=== PATIENT | female | born 1970 | race Caucasian/White ===

== ENCOUNTER 2016-11-01 06:00 | Emergency (ER) | payer MEDICARE ==
[~2016-11-01] VITALS: Ht 162.6 cm; Wt 90.0 kg
[2016-11-01] MEDS ORDERED: MORPHINE SULFATE 4 MG/ML, 1ML IVPush PRN (06:30)
[2016-11-01] MEDS ORDERED: SODIUM CHLORIDE FLUSH 10ML SYR IVF ONE (06:30)
[2016-11-01] MEDS ORDERED: ONDANSETRON 2MG/ML, 2ML IVPush ONE (06:30)
[2016-11-01 06:33] LABS: HCG UR OBC PASS; PATH.CAST-FLAG NOT PRESENT; SPERM-FLAG NOT PRESENT; SRC-FLAG NOT PRESENT; XTAL-FLAG NOT PRESENT; YLC-FLAG NOT PRESENT
[2016-11-01] MEDS ORDERED: ONDANSETRON 2MG/ML, 2ML ONE (06:37)
[2016-11-01] MEDS ORDERED: MORPHINE SULFATE 4 MG/ML, 1ML ONE (06:37)
[2016-11-01 06:41] LABS: HEMATOCRIT 37.1 % (34.6-47.8); HEMOGLOBIN 12.3 g/dL (11.7-16.4); WHITE BLOOD COUNT 5.9 x10^3/uL (3.4-10)
[2016-11-01 06:50] VITALS: BP 112/75
[2016-11-01 06:52] LABS: BLOOD UREA NITROGEN 22 mg/dL (7-18)
== END 2016-11-01 08:07 | disposition home or self-care (01) ==
LOC: ED 07:54
DX: N39.0 Urinary tract infection, site not specified (principal); N30.90 Cystitis, unspecified without hematuria; F17.210 Nicotine dependence, cigarettes, uncomplicated; E66.9 Obesity, unspecified
CPT/HCPCS: 36415; 76830; 80048; 81001; 81025; 82040; 85025; 87086; 96374; 96375; 99285; J2405

== ENCOUNTER 2016-11-06 12:10 | Observation (INO) | payer MEDICARE ==
[~2016-11-06] VITALS: Ht 162.6 cm; Wt 80.0 kg
[2016-11-06] MEDS ORDERED: NAPR500T PO (12:37)
[2016-11-06] MEDS ORDERED: CEFD300C37 PO (12:37)
[2016-11-06 12:38] LABS: DAU SCREEN DISCLAIMER
[2016-11-06 12:39] LABS: HEMATOCRIT 35.9 % (34.6-47.8); HEMOGLOBIN 11.9 g/dL (11.7-16.4); WHITE BLOOD COUNT 6.4 x10^3/uL (3.4-10)
[2016-11-06 12:50] LABS: BLOOD UREA NITROGEN 10 mg/dL (7-18)
[2016-11-06 12:51] LABS: ACETAMINOPHEN < 2 mcg/mL (10-30)
[2016-11-06 12:52] LABS: HCG UR OBC PASS
[2016-11-06] MEDS ORDERED: ACETAMINOPHEN 325 MG TABLET PO PRN (17:30)
[2016-11-06] MEDS ORDERED: DOCUSATE 100 MG CAPSULE PO PRN (17:30)
[2016-11-06] MEDS ORDERED: HALOPERIDOL 5 MG TABLET PO PRN (17:30)
[2016-11-06] MEDS ORDERED: PHENAZOPYRIDINE 100 MG TABLET PO PRN (17:30)
[2016-11-06] MEDS ORDERED: TEMAZEPAM 15 MG CAPSULE PO PRN (17:30)
[2016-11-06] MEDS ORDERED: NAPROXEN 500 MG TABLET PO PRN (17:30)
[2016-11-06] MEDS ORDERED: ONDANSETRON ODT 4 MG PO PRN (17:30)
[2016-11-06 18:19] VITALS: BP 120/82
[2016-11-06 19:54] VITALS: BP 109/96
[2016-11-06] MEDS: CEFDINIR 300 MG CAPSULE PO SCH (20:34)
[2016-11-06 21:45] LABS: PATH.CAST-FLAG NOT PRESENT; SPERM-FLAG NOT PRESENT; SRC-FLAG NOT PRESENT; XTAL-FLAG NOT PRESENT; YLC-FLAG NOT PRESENT
[2016-11-07] MEDS ORDERED: DIPHENHYDRAMINE 50 MG CAPSULE ONE (04:07)
[2016-11-07] MEDS ORDERED: DIPHENHYDRAMINE 50 MG CAPSULE PO ONE ×2 (04:30)
[2016-11-07 05:03] LABS: HEMATOCRIT 34.3 % (34.6-47.8); HEMOGLOBIN 11.5 g/dL (11.7-16.4); WHITE BLOOD COUNT 5.6 x10^3/uL (3.4-10)
[2016-11-07 05:16] LABS: BLOOD UREA NITROGEN 12 mg/dL (7-18)
[2016-11-07 08:07] VITALS: BP 114/82
[2016-11-07] MEDS: SENNA/DOCUSATE TABLET PO SCH (09:59)
[2016-11-07] MEDS: CEFDINIR 300 MG CAPSULE PO SCH ×2 (09:59→20:35)
[2016-11-07] MEDS ORDERED: NICOTINE 7 MG/24 HR PATCH.TD24 TD SCH (16:00)
[2016-11-07 19:46] VITALS: BP 118/77
[2016-11-07] MEDS ORDERED: OLANZAPINE 2.5 MG TABLET PO SCH (21:00)
[2016-11-08 07:33] VITALS: BP 121/76
[2016-11-08] MEDS: CEFDINIR 300 MG CAPSULE PO SCH (07:37)
[2016-11-08] MEDS: SENNA/DOCUSATE TABLET PO SCH (07:38)
== END 2016-11-08 08:30 ==
LOC: ED 13:14 → INTOOBSV 16:20 → EDIP 16:20 → 3E 18:17
PROVIDERS: ADMIT Internal Medicine; ATTEND Internal Medicine
DX: R45.851 Suicidal ideations (principal); F31.9 Bipolar disorder, unspecified; F41.9 Anxiety disorder, unspecified; N76.0 Acute vaginitis; F17.210 Nicotine dependence, cigarettes, uncomplicated; Z87.440 Personal history of urinary (tract) infections; Z91.410 Personal history of adult physical and sexual abuse; Z91.5 Personal history of self-harm; Z91.14 Patient's other noncompliance with medication regimen
CPT/HCPCS: 36415; 80048; 80307; 80329; 81001; 81025; 82040; 84439; 84443; 85025; 87086; 99285; G0378; G0480

== ENCOUNTER 2016-11-15 11:05 | Observation (INO) | payer MEDICARE ==
[~2016-11-15] VITALS: Ht 172.7 cm; Wt 100.0 kg
[~2016-11-15 11:05] MED LIST: CEFD300C37 PO; NAPR500T PO
[2016-11-15 11:23] LABS: DAU SCREEN DISCLAIMER
[2016-11-15 12:10] LABS: WHITE BLOOD COUNT 6.8 x10^3/uL (3.4-10)
[2016-11-15 12:21] LABS: ASPARTATE AMINO TRANSFERASE 14 U/L (15-37); BLOOD UREA NITROGEN 11 mg/dL (7-18)
[2016-11-15 12:27] LABS: ACETAMINOPHEN < 2 mcg/mL (10-30)
[2016-11-15] MEDS ORDERED: DOCUSATE 100 MG CAPSULE PO PRN (15:00)
[2016-11-15] MEDS ORDERED: ZIPRASIDONE 20 MG INJ IM PRN (15:00)
[2016-11-15] MEDS ORDERED: ONDANSETRON ODT 4 MG PO PRN (15:00)
[2016-11-15] MEDS ORDERED: BENZTROPINE 1 MG TABLET PO PRN ×2 (15:00)
[2016-11-15] MEDS: LORazepam 1MG TABLET PO PRN (17:45)
[2016-11-15 19:32] VITALS: BP 93/60
[2016-11-16] MEDS: LORazepam 1MG TABLET PO PRN ×3 (02:36→21:27)
[2016-11-16 08:18] VITALS: BP 100/65
[2016-11-16 19:35] VITALS: BP 100/67
[2016-11-16] MEDS: ZOLPIDEM 5MG TABLET PO PRN (23:03)
[2016-11-17] MEDS: LORazepam 1MG TABLET PO PRN ×3 (07:21→22:04)
[2016-11-17] MEDS: ACETAMINOPHEN 325 MG TABLET PO PRN (07:21)
[2016-11-17 08:00] VITALS: BP 89/59
[2016-11-17] MEDS: ZOLPIDEM 5MG TABLET PO PRN (19:36)
[2016-11-17 19:39] VITALS: BP 95/62
[2016-11-17] MEDS ORDERED: ONDANSETRON ODT 4 MG PO PRN (20:00)
[2016-11-17] MEDS ORDERED: DOCUSATE 100 MG CAPSULE PO PRN (20:00)
[2016-11-17] MEDS ORDERED: ZIPRASIDONE 20 MG INJ IM PRN (20:00)
[2016-11-17] MEDS ORDERED: BENZTROPINE 1 MG TABLET PO PRN ×2 (20:00)
[2016-11-18 08:15] VITALS: BP 98/70
[2016-11-18] MEDS: LORazepam 1MG TABLET PO PRN ×4 (08:17→18:10)
[2016-11-18 19:40] VITALS: BP 94/64
[2016-11-18] MEDS: ZOLPIDEM 5MG TABLET PO PRN (20:07)
[2016-11-19] MEDS: LORazepam 1MG TABLET PO PRN ×3 (04:28→17:45)
[2016-11-19] MEDS: ACETAMINOPHEN 325 MG TABLET PO PRN ×3 (04:51→19:24)
[2016-11-19 08:15] VITALS: BP 94/67
[2016-11-19] MEDS: ZOLPIDEM 5MG TABLET PO PRN (19:24)
[2016-11-19 19:27] VITALS: BP_SYST 126; BP_SYST 93; BP_DIAS 67; BP_DIAS 85
[2016-11-20] MEDS: LORazepam 1MG TABLET PO PRN ×4 (00:34→20:45)
[2016-11-20] MEDS: ACETAMINOPHEN 325 MG TABLET PO PRN ×3 (00:34→16:58)
[2016-11-20 07:57] VITALS: BP 91/73
[2016-11-20 19:43] VITALS: BP 99/67
[2016-11-20] MEDS: ZOLPIDEM 5MG TABLET PO PRN (20:45)
[2016-11-21] MEDS: LORazepam 1MG TABLET PO PRN ×3 (03:14→21:19)
[2016-11-21 08:30] VITALS: BP 105/73
[2016-11-21] MEDS: ACETAMINOPHEN 325 MG TABLET PO PRN (10:45)
[2016-11-21 19:38] VITALS: BP 106/72
[2016-11-21] MEDS: ZOLPIDEM 5MG TABLET PO PRN (21:19)
[2016-11-22] MEDS: LORazepam 1MG TABLET PO PRN ×4 (03:54→21:52)
[2016-11-22 07:28] VITALS: BP 100/71
[2016-11-22 19:38] VITALS: BP 97/67
[2016-11-22] MEDS: ZOLPIDEM 5MG TABLET PO PRN (21:51)
[2016-11-23 07:30] VITALS: BP 101/70
[2016-11-23] MEDS: LORazepam 1MG TABLET PO PRN ×2 (09:13→20:37)
[2016-11-23 19:43] VITALS: BP 103/71
[2016-11-23] MEDS: ZOLPIDEM 5MG TABLET PO PRN (20:36)
[2016-11-24] MEDS: LORazepam 1MG TABLET PO PRN ×3 (04:15→20:52)
[2016-11-24 07:58] VITALS: BP 84/54
[2016-11-24] MEDS ORDERED: BENZTROPINE 1 MG TABLET PO PRN ×2 (19:00)
[2016-11-24] MEDS ORDERED: ZIPRASIDONE 20 MG INJ IM PRN (19:00)
[2016-11-24] MEDS ORDERED: DOCUSATE 100 MG CAPSULE PO PRN (19:00)
[2016-11-24 19:17] VITALS: BP 96/67
[2016-11-24] MEDS: ZOLPIDEM 5MG TABLET PO PRN (20:52)
[2016-11-25 07:20] VITALS: BP 99/59
[2016-11-25] MEDS: LORazepam 1MG TABLET PO PRN ×2 (11:37→20:51)
[2016-11-25 19:44] VITALS: BP 100/65
[2016-11-25] MEDS: ZOLPIDEM 5MG TABLET PO PRN (20:51)
[2016-11-26] MEDS: LORazepam 1MG TABLET PO PRN ×2 (05:04→11:12)
[2016-11-26 08:00] VITALS: BP 109/75
[2016-11-26] MEDS: SERTRALINE 50MG TABLET PO SCH (13:15)
[2016-11-26] MEDS: GABAPENTIN 100 MG CAPSULE PO SCH ×2 (16:34→21:01)
[2016-11-26 19:23] VITALS: BP 105/71
[2016-11-26] MEDS ORDERED: PRAZOSIN 1 MG CAPSULE PO SCH (21:00)
[2016-11-27] VITALS (14 sets, daily range): BP systolic 76–104; BP diastolic 48–71
[2016-11-27] MEDS: ACETAMINOPHEN 325 MG TABLET PO PRN ×4 (03:41→20:20)
[2016-11-27] MEDS: SERTRALINE 50MG TABLET PO SCH (09:00)
[2016-11-27] MEDS: GABAPENTIN 100 MG CAPSULE PO SCH ×4 (09:00→20:20)
[2016-11-27] MEDS: ONDANSETRON ODT 4 MG PO PRN (19:48)
[2016-11-28] MEDS: ONDANSETRON ODT 4 MG PO PRN ×2 (02:10→08:59)
[2016-11-28] MEDS: ACETAMINOPHEN 325 MG TABLET PO PRN (02:10)
[2016-11-28 07:20] VITALS: BP 108/71
[2016-11-28] MEDS: GABAPENTIN 100 MG CAPSULE PO SCH ×3 (08:52→20:46)
[2016-11-28 09:10] VITALS: BP 98/65
[2016-11-28 09:15] VITALS: BP_SYST 110; BP_SYST 98; BP_DIAS 65; BP_DIAS 75
[2016-11-28 09:19] VITALS: BP 105/74
[2016-11-28] MEDS: BUTALB/APAP/CAFFEINE 50MG/325MG/40MG PO PRN ×2 (10:28→18:13)
[2016-11-28 19:21] VITALS: BP 128/86
[2016-11-29] MEDS: BUTALB/APAP/CAFFEINE 50MG/325MG/40MG PO PRN ×3 (01:06→16:20)
[2016-11-29 08:00] VITALS: BP 119/76
[2016-11-29] MEDS: GABAPENTIN 100 MG CAPSULE PO SCH ×3 (08:42→21:20)
[2016-11-29 20:04] VITALS: BP 118/83
[2016-11-30 07:42] VITALS: BP 111/78
[2016-11-30] MEDS: BUTALB/APAP/CAFFEINE 50MG/325MG/40MG PO PRN (08:59)
[2016-11-30] MEDS: GABAPENTIN 100 MG CAPSULE PO SCH (08:59)
== END 2016-11-30 11:11 ==
LOC: ED 12:01 → EDIP 12:54 → 3E 15:21
PROVIDERS: ADMIT Hospitalist; ATTEND Hospitalist
DX: R45.851 Suicidal ideations (principal); J45.909 Unspecified asthma, uncomplicated; F33.1 Major depressive disorder, recurrent, moderate; F31.9 Bipolar disorder, unspecified; F43.10 Post-traumatic stress disorder, unspecified; E11.9 Type 2 diabetes mellitus without complications; F12.10 Cannabis abuse, uncomplicated; Z87.891 Personal history of nicotine dependence; Z80.3 Family history of malignant neoplasm of breast; Z83.3 Family history of diabetes mellitus
CPT/HCPCS: 36415; 70450; 80053; 80307; 80329; 81001; 84703; 85025; 87086; 99285; G0378; Q0162; G0479; G0480